=== PATIENT | female | born 1935 | race Caucasian/White ===

== ENCOUNTER 2016-05-15 12:28 | Inpatient (IN) | payer MEDICARE ==
[~2016-05-15] VITALS: Ht 151.1 cm; Wt 55.9 kg
[~2016-05-15 12:28] MED LIST: ASPI325T80 PO; BENA1TAB10 PO; LEVO500T8 PO; RIVA20TA PO; WARF3TAB PO; WARF5TAB7 PO
[2016-05-15] MEDS ORDERED: SODIUM CHLORIDE FLUSH 10ML SYR IVF ONE (15:00)
[2016-05-15] MEDS ORDERED: SODIUM CHLORIDE 0.9% 1,000ML IVBOLUS ONE (15:00)
[2016-05-15 15:53] LABS: BLOOD UREA NITROGEN 15 mg/dL (7-18)
[2016-05-15 16:00] LABS: HEMOGLOBIN 11.7 g/dL (11.7-16.4)
[2016-05-15 16:11] LABS: ANISOCYTOSIS 2+; POLYCHROMASIA 1+
[2016-05-15] MEDS ORDERED: POTASSIUM CHLORIDE 40 MEQ in SODIUM CHLORIDE 0.9% 1,000 ML IV ONE (16:12)
[2016-05-15] MEDS ORDERED: MAGNESIUM SULFATE 1 GM in SODIUM CHLORIDE 0.9% 50 ML IV ONE (16:30)
[2016-05-15] MEDS ORDERED: CEFTRIAXONE PMX 1GM/50ML 50 ML IVPB ONE (16:30)
[2016-05-15] MEDS ORDERED: GUAIFENESIN/DM 200-20MG, 10ML UDC PO PRN (17:00)
[2016-05-15] MEDS ORDERED: ONDANSETRON 2MG/ML, 2ML IVP PRN (17:00)
[2016-05-15] MEDS ORDERED: ONDANSETRON ODT 4 MG PO PRN (17:00)
[2016-05-15] MEDS ORDERED: LABETALOL 5MG/ML, 20ML IV PRN (17:00)
[2016-05-15] MEDS ORDERED: POLYETHYLENE GLYCOL 17 GM PACKET PO PRN (17:00)
[2016-05-15] MEDS ORDERED: POTASSIUM CHLORIDE 20 MEQ TAB.ER.PRT PO ONE (17:00)
[2016-05-15] MEDS ORDERED: MAGNESIUM SULFATE PMX 2GM/50ML 50 ML IV ONE (17:30)
[2016-05-15] MEDS ORDERED: HYDROCHLOROTHIAZIDE HOMEMEDPO PRN (17:30)
[2016-05-15] MEDS ORDERED: BENAZEPRIL HOMEMEDPO PRN (17:30)
[2016-05-15] MEDS ORDERED: [UNRECOGNIZED DRUG - OTHER] HOMEMEDPO PRN (17:30)
[2016-05-15] MEDS ORDERED: POTASSIUM PHOS 4.4 MEQ/ML IV SCH (20:30)
[2016-05-15 20:53] VITALS: BP 116/69
[2016-05-15] MEDS ORDERED: POTASSIUM PHOSPHATE 40 MEQ in SODIUM CHLORIDE 0.9% 500 ML IV ONE (21:00)
[2016-05-15] MEDS ORDERED: SULFAMETH./TRIMETHOPRIM DS 800MG/160MG TABLET PO SCH (21:00)
[2016-05-15] MEDS: SULFAMETH./TRIMETHOPRIM DS 800MG/160MG TABLET PO SCH (21:46)
[2016-05-15] MEDS: SODIUM CHLORIDE 0.9% 1,000 ML IV SCH (21:46)
[2016-05-15] MEDS: ENOXAPARIN 40 MG/0.4 ML SQ SCH (21:46)
[2016-05-15] MEDS: FAMOTIDINE 20 MG/2 ML IV SCH (21:46)
[2016-05-16] MEDS: SODIUM CHLORIDE 0.9% 1,000 ML IV SCH ×2 (00:57→07:48)
[2016-05-16 01:23] VITALS: BP 110/62
[2016-05-16 07:09] VITALS: BP 101/60
[2016-05-16] MEDS: FAMOTIDINE 20 MG/2 ML IV SCH ×2 (07:48→22:18)
[2016-05-16] MEDS: SENNA/DOCUSATE TABLET PO SCH (07:48)
[2016-05-16] MEDS: ASPIRIN 325 MG TABLET EC PO SCH (07:48)
[2016-05-16] MEDS: SULFAMETH./TRIMETHOPRIM DS 800MG/160MG TABLET PO SCH ×2 (07:48→22:18)
[2016-05-16 08:25] LABS: ASPARTATE AMINO TRANSFERASE 19 U/L (15-37); BLOOD UREA NITROGEN 11 mg/dL (7-18); HEMOGLOBIN 11.6 g/dL (11.7-16.4)
[2016-05-16 08:45] LABS: DIFF TOTAL CELLS COUNTED 100 CELL DIFF
[2016-05-16 08:56] LABS: ANISOCYTOSIS 2+; ECHINOCYTES 1+; VERIFY COUNTS? YES
[2016-05-16 08:57] LABS: OVALOCYTES 1+; SCHISTOCYTES 1+
[2016-05-16 10:49] LABS: PATH.CAST-FLAG NOT PRESENT; SPERM-FLAG NOT PRESENT; SRC-FLAG NOT PRESENT; XTAL-FLAG NOT PRESENT; YLC-FLAG NOT PRESENT
[2016-05-16 13:35] VITALS: BP 92/63
[2016-05-16] MEDS: POTASSIUM CHLORIDE 10 MEQ in SODIUM CHLORIDE 0.45% 1,000 ML IV SCH (15:30)
[2016-05-16 21:14] VITALS: BP 107/68
[2016-05-16] MEDS: ENOXAPARIN 40 MG/0.4 ML SQ SCH (22:19)
[2016-05-17 01:55] VITALS: BP 102/64
[2016-05-17] MEDS: POTASSIUM CHLORIDE 10 MEQ in SODIUM CHLORIDE 0.45% 1,000 ML IV SCH (03:16)
[2016-05-17 03:46] LABS: ASPARTATE AMINO TRANSFERASE 18 U/L (15-37); BLOOD UREA NITROGEN 10 mg/dL (7-18)
[2016-05-17 03:51] LABS: HEMOGLOBIN 10.5 g/dL (11.7-16.4)
[2016-05-17 04:07] LABS: ANISOCYTOSIS 2+; OVALOCYTES 1+
[2016-05-17 07:28] VITALS: BP 116/77
[2016-05-17] MEDS: ASPIRIN 325 MG TABLET EC PO SCH (09:00)
[2016-05-17] MEDS: SULFAMETH./TRIMETHOPRIM DS 800MG/160MG TABLET PO SCH (09:00)
[2016-05-17] MEDS ORDERED: FAMOTIDINE 20 MG TABLET PO SCH (09:00)
[2016-05-17] MEDS: SENNA/DOCUSATE TABLET PO SCH (09:01)
[2016-05-17 12:57] VITALS: BP 117/70
[2016-05-17] MEDS ORDERED: SULF1TAB3 PO (14:20)
[2016-05-17] MEDS ORDERED: LOPE2CAP94 PO (14:25)
== END 2016-05-17 15:35 | disposition home or self-care (01) | DRG 640 ==
LOC: ED 16:24 → EDIP 16:57 → 3NW 18:44 → DCLOUNGE 05-17 14:53
PROVIDERS: ADMIT Hospitalist; ATTEND Hospitalist
DX: E86.1 Hypovolemia (principal); E43 Unspecified severe protein-calorie malnutrition; N39.0 Urinary tract infection, site not specified; D68.69 Other thrombophilia; E87.1 Hypo-osmolality and hyponatremia; R19.7 Diarrhea, unspecified; C50.919 Malignant neoplasm of unspecified site of unspecified female breast; F17.210 Nicotine dependence, cigarettes, uncomplicated; E87.6 Hypokalemia; G62.9 Polyneuropathy, unspecified; Z66 Do not resuscitate; I10 Essential (primary) hypertension; I48.91 Unspecified atrial fibrillation; Z79.01 Long term (current) use of anticoagulants; Z85.05 Personal history of malignant neoplasm of liver; Z85.3 Personal history of malignant neoplasm of breast; Z85.830 Personal history of malignant neoplasm of bone; Z90.49 Acquired absence of other specified parts of digestive tract; Z87.440 Personal history of urinary (tract) infections; Z90.710 Acquired absence of both cervix and uterus; Z90.89 Acquired absence of other organs; Z88.0 Allergy status to penicillin; Z68.24 Body mass index [BMI] 24.0-24.9, adult
CPT/HCPCS: 36415; 71010; 80048; 80053; 81001; 82040; 83690; 83735; 84100; 85025; 85610; 87046; 87077; 87086; 87186; 87324; 87899; 89055; 93970; 99285; J1650; J3475; J3480; J7030; J7040; S0028

== ENCOUNTER 2016-09-05 15:08 | Inpatient (IN) | payer MEDICARE ==
[~2016-09-05] VITALS: Ht 153.7 cm; Wt 54.0 kg
[~2016-09-05 15:08] MED LIST changes: +LOPE2CAP94 PO; +SULF1TAB3 PO
[2016-09-05 16:01] LABS: BLOOD UREA NITROGEN 23 mg/dL (7-18)
[2016-09-05 16:06] LABS: IS PT STATUS REG ER OR PRE ER? YES
[2016-09-05 16:21] LABS: ANISOCYTOSIS 1+
[2016-09-05] MEDS ORDERED: SODIUM CHLORIDE 0.9%, 500ML IVBOLUS ONE (16:30)
[2016-09-05] MEDS ORDERED: OMNIPAQUE 350 MG/ML, 100ML BOTTLE ONE (17:15)
[2016-09-05] MEDS ORDERED: cancer med PO (17:34)
[2016-09-05] MEDS ORDERED: SODIUM CHLORIDE 0.9% 1,000 ML IV SCH (19:18)
[2016-09-05] MEDS ORDERED: NICOTINE 7 MG/24 HR PATCH.TD24 TD SCH (19:30)
[2016-09-05] MEDS ORDERED: DOCUSATE 100 MG CAPSULE PO PRN (19:30)
[2016-09-05] MEDS ORDERED: TEMAZEPAM 15 MG CAPSULE PO PRN (19:30)
[2016-09-05] MEDS ORDERED: ENOXAPARIN 40 MG/0.4 ML SQ SCH (19:30)
[2016-09-05] MEDS ORDERED: ONDANSETRON ODT 4 MG PO PRN (19:30)
[2016-09-05] MEDS ORDERED: ENALAPRILAT 1.25 MG/ML, 2ML IVPush PRN (19:30)
[2016-09-05] MEDS ORDERED: ACETAMINOPHEN 325 MG TABLET PO PRN (19:30)
[2016-09-05] MEDS ORDERED: HYDROcodone/APAP 5/325 TABLET PO PRN (19:30)
[2016-09-05] MEDS ORDERED: POLYETHYLENE GLYCOL 17 GM PACKET PO PRN (19:30)
[2016-09-05 19:55] VITALS: BP 122/79
[2016-09-05] MEDS ORDERED: DILTIAZEM 5 MG/ML, 5ML IVPush PRN (21:30)
[2016-09-05] MEDS: NYSTATIN 500,000 UNITS/5 ML UDC PO SCH (22:42)
[2016-09-06 02:39] VITALS: BP 99/63
[2016-09-06 04:39] LABS: BLOOD UREA NITROGEN 20 mg/dL (7-18)
[2016-09-06] MEDS: NYSTATIN 500,000 UNITS/5 ML UDC PO SCH ×2 (05:49→11:49)
[2016-09-06 06:58] VITALS: BP 99/57
== END 2016-09-06 16:25 | disposition home or self-care (01) | DRG 312 ==
LOC: ED 16:32 → EDIP 18:09 → 4EST 19:09 → 4WST 22:41 → DCLOUNGE 09-06 16:10
PROVIDERS: ADMIT Internal Medicine; ATTEND Hospitalist
DX: R55 Syncope and collapse (principal); C78.7 Secondary malignant neoplasm of liver and intrahepatic bile duct; E87.1 Hypo-osmolality and hyponatremia; B37.0 Candidal stomatitis; C79.51 Secondary malignant neoplasm of bone; I48.1 Persistent atrial fibrillation; C78.00 Secondary malignant neoplasm of unspecified lung; F17.210 Nicotine dependence, cigarettes, uncomplicated; G62.9 Polyneuropathy, unspecified; I11.9 Hypertensive heart disease without heart failure; I48.2 Chronic atrial fibrillation; C50.919 Malignant neoplasm of unspecified site of unspecified female breast; J44.9 Chronic obstructive pulmonary disease, unspecified; M50.30 Other cervical disc degeneration, unspecified cervical region; Z66 Do not resuscitate; Z79.82 Long term (current) use of aspirin; Z87.440 Personal history of urinary (tract) infections; Z88.0 Allergy status to penicillin; W11.XXXA Fall on and from ladder, initial encounter; Y93.89 Activity, other specified; Y92.89 Other specified places as the place of occurrence of the external cause; Y99.8 Other external cause status
CPT/HCPCS: 36415; 70450; 71010; 71275; 72125; 80048; 81001; 82040; 82607; 83735; 84100; 84439; 84443; 84484; 85025; 87086; 93005; 93306; 99285; J1650; Q9967; J7030; J7040

== ENCOUNTER → 2017-03-12 | Outpatient (CLI) | payer MEDICARE ==
[~2017-03-12] MED LIST changes: +OMNIPAQUE 350 MG/ML, 100ML BOTTLE ONE; +SULF-169 PO; -SULF1TAB3 PO; +cancer med PO
== END | disposition home or self-care (01) ==
LOC: CFH 13:00
PROVIDERS: ATTEND Internal Medicine Hematology & Oncology
DX: C78.7 Secondary malignant neoplasm of liver and intrahepatic bile duct (principal); C79.51 Secondary malignant neoplasm of bone; R91.8 Other nonspecific abnormal finding of lung field; C50.512 Malignant neoplasm of lower-outer quadrant of left female breast
CPT/HCPCS: 71260; 74177; Q9967